=== PATIENT | female | born 1945 | race Caucasian/White ===

== ENCOUNTER 2024-03-30 10:33 | Emergency (ER) | payer OTHER ==
[2024-03-30 10:44] VITALS: RESP 18; BMI 28.3
[2024-03-30] MEDS ORDERED: hydrOXYzine PAMOATE 25 MG CAPSULE (FP) PO ONE (12:32)
[2024-03-30] MEDS: hydrOXYzine PAMOATE 25 MG CAPSULE (FP) PO ONE (12:37)
[2024-03-30 13:29] VITALS: BP 135/75; PULSE 68; TEMP 99.2
== END 2024-03-30 15:36 | disposition home or self-care (01) ==
LOC: JER 10:33
DX: F41.9 Anxiety disorder, unspecified (principal); R00.2 Palpitations; R06.02 Shortness of breath; R51.9 Headache, unspecified; R07.89 Other chest pain
CPT/HCPCS: 93005; 93010; 99283-25